=== PATIENT | female | born 2000 | race Caucasian/White ===

== ENCOUNTER 2025-03-25 20:00 | Inpatient (IN) | payer BC, SELFPAY ==
[2025-03-25] VITALS (14 sets, daily range): BP systolic 127–181; BP diastolic 79–97; PULSE 64–98; RESP 18; TEMP 36.7; BMI 38.3
[2025-03-25 18:19] LABS: Hematocrit 38.7 % (37-47); Hemoglobin 13.1 g/dL (12.0-15.0); Mean Corp Hgb Conc 33.9 g/dL (32-36); Mean Corpuscular Volume 85.6 fL (81-99); Mean Platelet Vol. 12.9 fl (6.2-12.0); Platelet Count 271 K/mm3 (150-450); RBC Distribution Width CV 13.9 % (11.6-14.6); RBC Distribution Width SD 43.3 fl (35.1-43.9); Red Blood Count 4.52 M/mm3 (4.2-5.4); White Blood Count 7.2 K/mm3 (4.4-11.0)
[2025-03-25 18:37] LABS: AST(SGOT) 48 U/L (<=31); Alanine Aminotransfer ALT/SGPT 33 U/L (<=34); Creatinine, Serum 0.64 mg/dL (0.70-1.20); EST Glomerular Filtration Rate 125 (>60); Estimated Creatinine Clearance 154.24 ml/min (50-250); Uric Acid 4.4 mg/dL (2.6-6.0)
[2025-03-25 18:39] LABS: Protein, Urine (Random) 58.6 mg/dL (0.0-12.0); Protein:Creat Ratio 376 mg/g CRE (0-200)
[2025-03-25] MEDS: 0.9% Normal Saline Single 100 ML IV.SOLN. INTRA-UTER (20:50)
--- NOTE | 2025-03-25 20:54 | PCM.HP.OB ---
HPI - General General Date of Admission: 03/25/25 Date of Service: 03/25/25 Chief Complaint: elevated BP HPI Narrative MARTA SIMMS, is a 24 F who presents 1 para 0 who was admitted at 37-5/7 weeks gestation from the office for elevated blood pressure. She denies any headache or visual changes. She has had good movement. She denies any epigastric pain. She presents to the office today for routine visit was found to have elevated blood pressures. Upon arrival to labor and delivery her labs showed mild preeclampsia and her blood pressures were in the mild range. GBS is positive Maternal obesity BMI of 38 Maternal Data Information Final BABATUNDE: 04/10/25 Gestational age: 37 5/7 PFSH PFS Medical History no medical history Home Medications ?Medication ?Instructions ?Recorded ?Last Taken ?Type aspirin 81 mg capsule 81 mg PO DAILY prophylatic 03/25/25 03/24/25 History omeprazole 20 mg capsule,delayed 20 mg PO DAILY heartburn 03/25/25 Unknown History release vit no.95-ferrous 1 tab PO DAILY 03/25/25 03/24/25 History fumarate 28 mg-folic acid 800 mcg tablet () Allergy/AdvReac Type Severity Reaction Status Date / Time No Known Drug Allergies Allergy Other Verified 03/25/25 17:55 Surgical History no surgical history Social History Smoking Status: Never smoker History Elective abortions Hx Para 0 Spontaneous abortions Hx # Term Pregnancies Ectopic pregnancies Hx # Pregnancies Multiple births # of living children ROS Constitutional Constitutional: Denies fatigue, fever(s) or malaise Eyes Eyes: Denies change in vision ENT HEENT: Denies dizziness or headache(s) Cardiovascular Cardiovascular: Denies chest pain, dyspnea or lightheadedness Respiratory/Chest Respiratory/Chest: Denies cough or dyspnea Gastrointestinal Gastrointestinal: Denies change in bowel habits Genitourinary Genitourinary: Denies burning urination or genital lesions Integumentary Integumentary: Denies rash Neurologic Neurologic: Denies confusion, dizziness, headache(s), numbness or weakness Vital Signs Vital Signs Vital Signs: 03/25/25 17:31 03/25/25 17:47 03/25/25 17:47 Temperature Temperature Source Pulse Rate 85 Respiratory Rate 18 Blood Pressure 146/97 H BP Systolic 146 BP Diastolic 97 03/25/25 17:47 03/25/25 17:47 03/25/25 18:17 Temperature 98.1 F Temperature Source Temporal Pulse Rate Respiratory Rate Blood Pressure 127/83 H BP Systolic 127 BP Diastolic 83 03/25/25 18:17 03/25/25 18:32 03/25/25 18:32 Temperature Temperature Source Pulse Rate 90 72 Respiratory Rate Blood Pressure 135/86 H BP Systolic 135 BP Diastolic 86 03/25/25 18:48 03/25/25 18:48 03/25/25 19:02 Temperature Temperature Source Pulse Rate 73 Respiratory Rate Blood Pressure 135/84 H 137/92 H BP Systolic 135 137 BP Diastolic 84 92 03/25/25 19:02 03/25/25 19:17 03/25/25 19:17 Temperature Temperature Source Pulse Rate 89 64 Respiratory Rate Blood Pressure 140/79 H BP Systolic 140 BP Diastolic 79 03/25/25 19:32 03/25/25 19:32 03/25/25 19:47 Temperature Temperature Source Pulse Rate 71 Respiratory Rate Blood Pressure 142/85 H 141/87 H BP Systolic 142 141 BP Diastolic 85 87 03/25/25 19:47 03/25/25 20:02 03/25/25 20:02 Temperature Temperature Source Pulse Rate 72 91 Respiratory Rate Blood Pressure 144/92 H BP Systolic 144 BP Diastolic 92 03/25/25 20:19 03/25/25 20:19 03/25/25 20:32 Temperature Temperature Source Pulse Rate 88 Respiratory Rate Blood Pressure 173/94 H 159/96 H BP Systolic 173 159 BP Diastolic 94 96 03/25/25 20:32 Temperature Temperature Source Pulse Rate 98 Respiratory Rate Blood Pressure BP Systolic BP Diastolic Weight Weight: 101.321 kg Body Mass Index (BMI) 38.3 Physical Exam Const alert and no apparent distress General Appearance: cooperative HEENT normocephalic Resp normal respiratory effort Cardio regular rate GI soft to palpation GI Narrative: gravid, nontender, appropriate for gestational age Extremity no calf tenderness General Extremity: edema Skin no wounds Rashes: No rashes noted Psych activity/motor behavior normal Labs Labs Labs: Blood Type Pending Antibody Screen Pending Hct 38.7 % (37-47) Hgb 13.1 g/dL (12.0-15.0) Syphilis Total Ab Pending Assessment & Plan (1) High-risk in third trimester: PLAN: Risk benefits and alternatives to induction of labor discussed with the patient questions were answered to her satisfaction she desires to proceed. Will monitor for signs and symptoms of severe preeclampsia. Will proceed with [place] Cytotec Pitocin and artificial rupture membranes as indicated and as needed for induction. Estimated weight is less than 4500 g and pelvis clinically adequate to expect vaginal delivery. Group B strep prophylaxis will be initiated for positive group B strep test (2) 37 weeks gestation of : (3) Preeclampsia: (4) Encounter for induction of labor: (5) Maternal obesity syndrome in third trimester: (6) BMI 38.0-38.9,adult: (7) GBS (group B Streptococcus carrier), +RV culture, currently :
[2025-03-25] MEDS: miSOPROStol 25 MCG TABLET PO (20:56)
[2025-03-25] MEDS: Labetalol 200 MG Tablet PO (21:20)
[2025-03-25 21:27] LABS: Syphilis Antibodies Nonreactive (Nonreactive)
[2025-03-26] VITALS (72 sets, daily range): BP systolic 96–172; BP diastolic 52–101; PULSE 57–103; RESP 16–18; TEMP 36.2–37; O2SAT 95–99
[2025-03-26] MEDS: Lactated Ringers 1,000 ML 999 ML IV (01:00)
[2025-03-26] MEDS: Penicillin G Pot 5,000,000 UNITS in 0.9% Normal Saline (100mL MB+) 100 ML 150 UNITS IV (01:14)
[2025-03-26] MEDS: fentaNYL-bupivacaine (epidural) 100 ML BAG EPIDURAL ×3 (01:58→11:51)
[2025-03-26] MEDS: Lactated Ringers 1,000 ML 200 ML IV ×3 (02:12→13:18)
[2025-03-26] MEDS: Oxytocin 15 Units/NS 250ml 15 UNITS/250 ML IV.SOLN 2 UNITS IV (03:10)
[2025-03-26] MEDS: Penicillin G 3,000,000 Units 50 ML 100 UNITS IV ×3 (05:01→15:05)
[2025-03-26] MEDS: LACTATED RINGERS 500 ML 999 ML IV (05:42)
--- NOTE | 2025-03-26 08:53 | PCM.PN.CNM ---
Subjective Subjective Patient seen at bedside. Denies any headache, dizziness, vision changes, SOB, or CP. Comfortable with epidural. Objective Data Objective Data Vital Signs: Vital Signs Temp Pulse Resp BP Pulse Ox 97.8 F 67 16 137/68 H 97 03/26/25 08:22 03/26/25 08:22 03/26/25 08:22 03/26/25 08:16 03/26/25 08:22 Weight: 223 lb 6 oz Body Mass Index (BMI) 38.3 Intake & Output: Intake and Output for Last 24 Hours 03/24/25 03/25/25 03/26/25 23:59 23:59 23:59 Intake Total 2684.60 / 2684.60 Balance 2684.60 / 2684.60 Lab / Micro Data 03/25/25 17:50 03/25/25 17:50 Labs: Laboratory Results - last 24 hr 03/25/25 17:50: WBC 7.2, RBC 4.52, Hgb 13.1, Hct 38.7, MCV 85.6, MCH 29.0, MCHC 33.9, RDW Std Deviation 43.3, RDW Coeff of Zachary 13.9, Plt Count 271, MPV 12.9 H, Creatinine 0.64 L, Estim Creat Clear Calc 154.24, Est GFR (MDRD) Non-Af 125, Uric Acid 4.4, AST 48 H, ALT 33, U Random Total Protein 58.6 H, Urine Creatinine 156.00, Protein/Creatinin Ratio 376 H, Syphilis Total Ab Nonreactive, Blood Type O POSITIVE, Antibody Screen NEGATIVE Assessment & Plan (1) GBS (group B Streptococcus carrier), +RV culture, currently : (2) Maternal obesity syndrome in third trimester: (3) Encounter for induction of labor: (4) Preeclampsia: (5) 37 weeks gestation of : (6) High-risk in third trimester: PLAN: Plan CE /-2 AROM for clear fluid IUPC placed Pitocin at 12 mu/min- continue to increase per policy GBS positive- adequately treated
[2025-03-26] MEDS: Ondansetron 4 MG/2 ML Vial IV (14:08)
[2025-03-26] MEDS: miSOPROStol 200 MCG Tablet 1000 MCG RC (17:36)
[2025-03-26] MEDS: Oxytocin 15 Units/NS 250ml 15 UNITS/250 ML IV.SOLN 334 UNITS IV (17:42)
--- NOTE | 2025-03-26 18:02 | EX.PCM.OBVAG ---
Assessment & Plan (1) Vaginal delivery: (2) Second degree perineal laceration: (3) Uterine atony: Maternal Data Information BABATUNDE Calculator Estimated Delivery Date Method Current WG Current Estimate 04/10/25 Manual 37w 6d Vaginal Delivery Maternal Presentation Maternal Presentation: Medically Indicated Induction (preeclampsia) Type of Induction: Cervidil and Pitocin Vaginal Delivery Information Procedure Performed: Spontaneous Vaginal Delivery Surgeon/Practitioner: Denisse Barragan Date of Procedure: 03/26/25 Pre-Procedure Diagnosis: Induction of labor for preeclampsia Post-Procedure Diagnosis: , second degree perineal laceration, uterine atony Type of anesthesia: Epidural Estimated Blood Loss: 700ml Time of Delivery: 17:26 Findings Description of procedure: Progressed to complete with urge to push. Epidural for pain management. of viable male over second degree perineal laceration . APGARS 8,9 respectively. Infant head delivered with body immediately forthcoming, trailing meconium. Placed on maternal abdomen, strong cry. Mouth and nares suctioned for secretions. Pitocin started for active 3rd stage management. Cord doubly clamped and cut by FOB after pulsations ceased, delayed cord clamping. Placenta delivered intact via dahl, 3 vessel cord intact. Uterine atony and increased bleeding, Cytotec 800mcg given per rectum due to elevated BP. Perineum inspected and revealed second degree perineal laceration. Repaired with 3.0 vicryl rapide and epidural. Fundus firm and hemostasis achieved. EBL 700ml. Mom and baby stable, planning to breastfeed. Family bonding well. notified of delivery. 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
[2025-03-26] MEDS: Magnesium Sulfate 4gm/100mL 4 GM/100 ML IV.SOLN. IV (19:14)
[2025-03-26] MEDS: Ibuprofen 600 MG Tablet PO (19:15)
[2025-03-26] MEDS: Magnesium Sulfate 20 GM/500 ML BAG IV (19:36)
[2025-03-26] MEDS: Labetalol 100 MG Tablet PO (19:55)
[2025-03-26] MEDS: Acetaminophen 500 MG Tablet 1000 MG PO (20:50)
[2025-03-27] VITALS (15 sets, daily range): BP systolic 108–144; BP diastolic 66–90; PULSE 83–100; RESP 18; TEMP 35.9–36.4; O2SAT 96–100
[2025-03-27] MEDS: Ibuprofen 600 MG Tablet PO ×2 (03:58→12:55)
[2025-03-27] MEDS: Magnesium Sulfate 20 GM/500 ML BAG IV ×2 (04:31→14:25)
[2025-03-27 05:44] LABS: Absolute Lymphocyte Count 1.69 X10^3/uL (0.83-4.51); Absolute Neutrophil Count 13.1 X10^3/uL (2.0-7.7); Basophil# 0.04 X10^3/uL; Basophil% 0.2 % (0-1); Eosinophil# 0.05 X10^3/uL; Eosinophils% 0.3 % (0-5); Hematocrit 33.2 % (37-47); Hemoglobin 11.6 g/dL (12.0-15.0); Lymphocyte # 1.69 X10^3/ul (0.83-4.51); Lymphocyte % 10.5 % (19-41); Mean Corp Hgb Conc 34.9 g/dL (32-36); Mean Corpuscular Hgb 29.9 pg (27.0-32.0); Mean Corpuscular Volume 85.6 fL (81-99); Mean Platelet Vol. 12.3 fl (6.2-12.0); Monocyte# 1.12 X10^3/uL; NRBC Flagged by Analyzer 0 % (0-5); Neutrophil # 13.13 X10^3/uL (2.7-7.7); Neutrophil % 81.6 % (47-70); Platelet Count 227 K/mm3 (150-450); RBC Distribution Width CV 14.1 % (11.6-14.6); RBC Distribution Width SD 43.7 fl (35.1-43.9); Red Blood Count 3.88 M/mm3 (4.2-5.4); White Blood Count 16.1 K/mm3 (4.4-11.0)
[2025-03-27 06:03] LABS: ALB/GLOB Ratio 1.2 RATIO (0.9-2.4); AST(SGOT) 32 U/L (<=31); Alanine Aminotransfer ALT/SGPT 30 U/L (<=34); Albumin, Serum 2.9 g/dL (3.5-5.0); Alkaline Phosphatase 213 U/L (35-104); Anion Gap 11 (5-15); BUN 12 mg/dL (4-19); BUN/Creat Ratio 12.2 RATIO (10-20); Calcium,Total 8.5 mg/dL (7.6-11.0); Carbon Dioxide 18.9 mmol/L (21.0-32.0); Chloride 105 mmol/L (98-108); Creatinine, Serum 0.95 mg/dL (0.70-1.20); EST Glomerular Filtration Rate 84 (>60); Estimated Creatinine Clearance 103.91 ml/min (50-250); Globulin 2.5 g/dL (2.2-4.2); Glucose 107 mg/dL (70-99); Potassium 4.1 mmol/L (3.3-5.1); Protein, Total 5.4 g/dL (5.9-8.4); Sodium Level 135 mmol/L (133-145); Total Bilirubin 0.24 mg/dL (0.00-1.30)
[2025-03-27] MEDS: Acetaminophen 500 MG Tablet 1000 MG PO ×2 (07:58→20:16)
[2025-03-27] MEDS: Senna/Docusate Sodium 1 Tablet PO (07:58)
[2025-03-27] MEDS: Labetalol 100 MG Tablet PO ×2 (09:38→21:34)
--- NOTE | 2025-03-27 10:19 | PN.OBGYN_ITS ---
Subjective Subjective Pt doing well. No CP, SOB, palpitations, leg pain, [place], lightheadedness. Some cramping. Lochia normal. Objective Data Objective Data Vital Signs: Vital Signs Temp Pulse Resp BP Pulse Ox O2 Del Method 97.1 F L 91 18 138/83 H 100 Room Air 03/27/25 10:00 03/27/25 10:00 03/27/25 10:00 03/27/25 10:00 03/27/25 10:00 03/27/25 10:00 Oxygen Delivery Method Room Air Weight: 223 lb 6 oz Body Mass Index (BMI) 38.3 Intake & Output: Intake and Output for Last 24 Hours 03/25/25 03/26/25 03/27/25 23:59 23:59 23:59 Intake Total 6318.33 / 6318.33 1040.83 / 1040.83 Output Total 3875 / 3875 1999 Balance 2443.33 / 2443.33 -959.17 / -959.17 Lab / Micro Data 03/27/25 05:25 03/27/25 05:25 Labs: Laboratory Results - last 24 hr 03/27/25 05:25: WBC 16.1 H, RBC 3.88 L, Hgb 11.6 L, Hct 33.2 L, MCV 85.6, MCH 29.9, MCHC 34.9, RDW Std Deviation 43.7, RDW Coeff of Zachary 14.1, Plt Count 227, M PV 12.3 H, Immature Gran % (Auto) 0.400, Neut % (Auto) 81.6 H, Lymph % (Auto) 10.5 L, [place] % (Auto) 7.0, Eos % (Auto) 0.3, Baso % (Auto) 0.2, Absolute Neuts (auto) 13.1 H, Absolute Lymphs (auto) 1.69, Nucleated RBC % 0, Sodium 135, Potassium 4.1, Chloride 105, Carbon Dioxide 18.9 L, Anion Gap 11, BUN 12, Creatinine 0.95, Estim Creat Clear Calc 103.91, Est GFR (MDRD) Non-Af 84, BUN/Creatinine Ratio 12.2, Glucose 107 H, Calcium 8.5, Total Bilirubin 0.24, AST 32, ALT 30, Alkaline Phosphatase 213 H, Total Protein 5.4 L, Albumin 2.9 L, Globulin 2.5, Albumin/Globulin Ratio 1.2 Physical Exam Const alert and no apparent distress General Appearance: comfortable Extremity no calf tenderness Assessment & Plan (1) Preeclampsia: PLAN: Cont mag gtt for 24 hours . BP stable on Labetalol 100 mg BID. Continue routine care. (2) Vaginal delivery:
[2025-03-27] MEDS: 0.9% Saline Lock 10 ML Syringe IV (19:13)
[2025-03-28] MEDS: Ibuprofen 600 MG Tablet PO ×2 (01:48→09:18)
[2025-03-28 02:00] VITALS: BP 129/82; PULSE 73; RESP 16; TEMP 36.8; O2SAT 99
[2025-03-28] MEDS: Acetaminophen 500 MG Tablet 1000 MG PO (05:09)
[2025-03-28 08:30] VITALS: BP 142/84; PULSE 67; RESP 16; TEMP 37
[2025-03-28] MEDS: Labetalol 100 MG Tablet PO (09:18)
[2025-03-28 11:00] VITALS: BP 133/78
--- NOTE | 2025-03-28 12:10 | PCM.PN.OB ---
Subjective Subjective Doing well per patient and nursing staff. Ambulating and taking PO without difficulty. Voiding and passing flatus. Pain controlled. , services for assistance. Denies headache, visual changes, chest pain, shortness of breath, leg pain or increased bleeding. Lochia normal. Objective Data Objective Data Vital Signs: Vital Signs Temp Pulse Resp BP Pulse Ox O2 Del Method 98.6 F 67 16 133/78 H 99 Room Air 03/28/25 08:30 03/28/25 08:30 03/28/25 08:30 03/28/25 11:00 03/28/25 02:00 03/28/25 02:00 Oxygen Delivery Method Room Air Weight: 223 lb 6 oz Body Mass Index (BMI) 38.3 Intake & Output: Intake and Output for Last 24 Hours 03/26/25 03/27/25 03/28/25 23:59 23:59 23:59 Intake Total 6318.33 / 6318.33 / Output Total 3875 / 3875 4000 / 4000 Balance 244.33 / 2443.33 -34 / - Lab / Micro Data 03/27/25 05:25 03/27/25 05:25 ROS Constitutional Constitutional: Reports systems reviewed and no addt'l complaints, except as documented; Denies headache(s) Eyes Eyes: Denies acute decrease in peripheral vision, blurry vision or change in vision ENT HEENT: Reports systems reviewed and no addt'l complaints, except as documented Cardiovascular Cardiovascular: Denies chest pain or dizziness Respiratory/Chest Respiratory/Chest: Denies cough, dyspnea, dyspnea on exertion, shortness of breath at rest or shortness of breath with exertion Gastrointestinal Gastrointestinal: Denies abdominal pain, diarrhea, nausea or vomiting Genitourinary Genitourinary: Denies abdominal discomfort Musculoskeletal Musculoskeletal: Denies limited range of motion Integumentary Integumentary: Reports systems reviewed and no addt'l complaints, except as documented Neurologic Neurologic: Reports systems reviewed and no addt'l complaints, except as documented Psychiatric Psychiatric: Reports systems reviewed and no addt'l complaints, except as documented Endocrine Endocrinology: Reports systems reviewed and no addt'l complaints, except as documented Hematologic/Lymphatic Hematologic/Lymphatic: Reports systems reviewed and no addt'l complaints, except as documented Allergic/Immunologic Allergic/Immunologic: Reports systems reviewed and no addt'l complaints, except as documented Physical Exam Const alert and oriented x3 General Appearance: cooperative Orientation / Consciousness: awake, oriented to person, oriented to place and oriented to time Exam Limitations: no limitations HEENT normocephalic Head and Scalp: normal to inspection, normocephalic and atraumatic Face and Sinus: normal facial exam Eyes General Eye: normal appearance of both eyes Neck full ROM Chest Chest: symmetrical chest wall rise Resp normal respiratory effort and normal air movement Auscultation: clear to auscultation bilaterally Cardio regular rate, regular rhythm, S1 normal heart sound, S2 normal heart sound, no murmurs, no rub, no gallops and no clicks GI normal to inspection, nondistended, normoactive bowel sounds and non-tender appearance of the vagina normal Bladder / Kidney Exam: no CVA tenderness Back/Spine normal ROM Extremity normal to inspection and full ROM Skin no rashes or lesions noted Neuro oriented x3, CN's II-XII intact bilaterally and moves all extremities Sensorium / Orientation: awake, alert and oriented to person Motor Exam: clonus absent Deep Tendon Reflexes: Rt Patellar (L4): 2+ and Lt Patellar (L4): 2+ Assessment & Plan (1) Vaginal delivery: (2) Second degree perineal laceration: (3) Uterine atony: (4) Preeclampsia: PLAN: Plan 1) Routine care, PPD #2 2) Vitals signs stable, continue Labetalol 100mg PO BID 3) Pain controlled 4) , services PRN 5) D/C home 6) Follow up in 2 days for BP check in off. 2 weeks and 6 weeks
--- NOTE | 2025-03-28 12:12 | PCM.DC.SUM ---
Providers Date of Admission: 03/25/25 Primary Care Physician: No Primary Care Phys Reason For Visit: VAGINAL DELIVERY Diagnosis Discharge Diagnosis (1) Vaginal delivery: Status: Acute Code(s): O80 - Encounter for full-term uncomplicated delivery (2) Second degree perineal laceration: Status: Acute Code(s): O70.1 - Second degree perineal laceration during delivery (3) Uterine atony: Status: Acute Code(s): O62.2 - Other uterine inertia (4) Preeclampsia: Status: Acute Code(s): O14.90 - Unspecified pre-eclampsia, unspecified trimester Plan 1) Routine care, PPD #2 2) Vitals signs stable, continue Labetalol 100mg PO BID 3) Pain controlled 4) , services PRN 5) D/C home 6) Follow up in 2 days for BP check in off. 2 weeks and 6 weeks Medications at Discharge Home Medications omeprazole 20 mg capsule,delayed release 20 mg PO DAILY heartburn 03/25/25 vit no.95-ferrous fumarate 28 mg-folic acid 800 mcg tablet () 1 tab PO DAILY 03/25/25 acetaminophen 500 mg tablet 1,000 mg (2 x 500 mg) PO Q6H PRN PRN Pain 1-10 Or Fever #0 tabs 03/28/25 ibuprofen 600 mg tablet 600 mg PO Q6H PRN PRN Pain Score 1-10 #0 tabs 03/28/25 labetalol 100 mg tablet 100 mg PO BID #60 tabs 03/28/25 Hospital Course Summary of Care Provided Minutes Spent on Discharge: 15 Weight / BMI Weight Weight: 223 lb 6 oz Body Mass Index (BMI) 38.3 ABG / Lab / Microbiology Data 03/27/25 05:25 03/27/25 05:25 D/C Instructions Discharge Diet: No restrictions Discharge Activity: Return to Normal Activity, May Drive, May Shower and May Take a Tub Bath May resume sexual activity in: 6 weeks Weight Bearing Status: Full weight bearing Call your doctor if you observe: Fever of 101 or Higher, Inability to urinate, Using more than 1 pad per hour, Shortness of breath, Chest pain, Increased palpitations (irregular heartbeat), Calf discomfort and Uncontrolled pain DC O2, CPAP, BIPAP Needs Home O2 Discharge instructions: No Please Follow Up With: Denisse Barragan CNM When: 2 week virtual visit and 6 week visit Meaningful Use Info Meaningful Use Meaningful Use Diagnoses (Choose all that apply): None applicable Ischemic Stroke Statin Dosing Therapy Reference: STATIN DOSE THERAPY REFERENCE: * Patients > 75 years receive moderate or high dose statin therapy. * Patients 75 years or YOUNGER should receive HIGH intensity statin dose unless contraindicated. You will be required to document reason for non-treatment if statin daily dose does not meet guidelines. HIGH DOSE STATIN THERAPY DAILY Atorvastatin > than or = to 40 mg Rosuvastatin > than or = to 20 mg Amlodipine + Atorvastatin > than or = to 2.5/40 mg Ezetimibe + Simvastatin 10/80 mg Simvastatin 80mg Discharge Plan Admission Admit Date/Time: 03/25/25 20:00 Primary Reason for Your Visit: Vaginal delivery, 2nd degree perineal laceration, preeclampsia Attending Provider: Denisse Barragan Primary Care Provider: Care Physician,No Primary Discharge Orders/Prescriptions Prescriptions: New acetaminophen 500 mg Tablet 1,000 mg PO Q6H PRN PRN (Reason: Pain 1-10 Or Fever) Qty: 0 0RF ibuprofen 600 mg Tablet 600 mg PO Q6H PRN PRN (Reason: Pain Score 1-10) Qty: 0 0RF labetalol 100 mg Tablet 100 mg PO BID Qty: 60 0RF Discontinued aspirin 81 mg capsule 81 mg PO DAILY No Action omeprazole 20 mg capsule,delayed release(DR/EC) 20 mg PO DAILY PNV cmb#95-ferrous fumarate-FA [] 28 mg iron- 800 mcg tablet 1 tab PO DAILY Referrals / Follow Up: Care Physician,No Primary [Primary Care Provider] - Disposition Disposition (needs filled in before D/C Order can be placed): Home, Self Care
[2025-03-28 15:04] VITALS: BP 134/76; RESP 16
== END 2025-03-28 15:40 | disposition home or self-care (01) | DRG 807 ==
LOC: WPOUT 20:20 → WP 20:20
PROVIDERS: Obstetrics & Gynecology; Admitting Provider Advanced Practice Midwife; Referring Provider Advanced Practice Midwife; Visit Provider Advanced Practice Midwife
DX: O14.04 Mild to moderate pre-eclampsia, complicating childbirth (principal); Z37.0 Single live birth; O72.1 Other immediate postpartum hemorrhage; O99.214 Obesity complicating childbirth; E66.9 Obesity, unspecified; O70.1 Second degree perineal laceration during delivery; Z3A.37 37 weeks gestation of pregnancy; O99.824 Streptococcus B carrier state complicating childbirth; Z79.82 Long term (current) use of aspirin; Z79.899 Other long term (current) drug therapy
CPT/HCPCS: 59025; 59050; 80053; 82565; 82570; 84156; 84450; 84460; 84550; 85025; 85027; 86780; 86850; 86900; 86901; 99221; A4216; G0378; J2405